=== PATIENT | female | born 1960 | race Caucasian/White ===

== ENCOUNTER → 2023-04-01 13:13 | Outpatient (REF) | payer OTHER, SELFPAY | LOC: RCS 13:13 | PROVIDERS: ATTENDING PHYSICIAN Family Medicine; FAMILY PHYSICIAN Student in an Organized Health Care Education/Training Program | DX: I49.49 Other premature depolarization (principal) | CPT/HCPCS: 93225; 93226 ==

== ENCOUNTER → 2023-04-29 07:07 | Outpatient (REF) | payer OTHER, SELFPAY | LOC: DHCBS HW 07:07 | PROVIDERS: ATTENDING PHYSICIAN Internal Medicine Interventional Cardiology; FAMILY PHYSICIAN Student in an Organized Health Care Education/Training Program | DX: R00.2 Palpitations (principal) | CPT/HCPCS: 93306 ==

== ENCOUNTER → 2023-12-04 12:27 | Outpatient (REF) | payer OTHER, SELFPAY | LOC: HWWDC 12:27 | PROVIDERS: ATTENDING PHYSICIAN Nurse Practitioner Family; FAMILY PHYSICIAN Family Medicine | DX: Z12.31 Encounter for screening mammogram for malignant neoplasm of breast (principal) | CPT/HCPCS: 77063; 77067 ==

== ENCOUNTER → 2024-12-25 14:23 | Outpatient (REF) | payer OTHER, SELFPAY | LOC: HWWDC 14:23 | PROVIDERS: ATTENDING PHYSICIAN Nurse Practitioner Family; FAMILY PHYSICIAN Family Medicine | DX: Z12.31 Encounter for screening mammogram for malignant neoplasm of breast (principal) | CPT/HCPCS: 77063; 77067 ==